=== PATIENT | female | born 1970 | race Caucasian/White ===

== ENCOUNTER 2017-09-12 08:28 | Outpatient (CLI) ==
[2016-03-12 16:39] VITALS: BMI 28.0
--- NOTE | 2017-09-12 09:53 | US ---
EXAM: PELVIC ULTRASOUND COMPLETE HISTORY: Irregular menstrual cycles FINDINGS: Ultrasound pelvis transvaginal. Transvaginal approach imaging was performed for improved r esolution and anatomic definition. The uterus measured 9.1 x 4.5 x 5.2. The right aspect of the lower uterine body demonstrated what ma y represent a slightly hypoechoic, minimally cystic mass measuring 1.6 x 1.3 x 2.0 cm. This could rep resent a fibroid. The myometrium was otherwise grossly unremarkable. Several small Nabothian cysts were seen. The endometrial stripe was symmetric and within normal limits regarding thickness at 0.38 cm. The right ovary was not seen. The left ovary measured 2.3 x 1.5 x 1.4 cm and demonstrated normal son ographic appearance and blood flow. IMPRESSION: 1. Possible uterine fibroid. 2. Unremarkable endometrium. 3. Right ovary not seen. Left ovary appeared normal.
== END 2017-09-12 08:29 | disposition home or self-care (01) ==
LOC: RAD 08:28
PROVIDERS: ATTEND Physician Assistant
DX: N92.6 Irregular menstruation, unspecified (principal)

== ENCOUNTER 2017-09-13 10:11 | Outpatient (CLI) ==
[2016-03-12 16:39] VITALS: BMI 28.0
== END 2017-09-13 10:12 | disposition home or self-care (01) ==
LOC: RAD 10:11
PROVIDERS: ATTEND Physician Assistant
DX: Z12.31 Encounter for screening mammogram for malignant neoplasm of breast (principal)
CPT/HCPCS: 77067

== ENCOUNTER 2018-01-28 14:09 | Emergency (ER) | payer OTHER ==
[2018-01-28 14:17] VITALS: BP 126/87; TEMP 98.3; BMI 29.2
--- NOTE | 2018-01-28 14:30 | ED.PDOC ---
General ED Provider: Dr. AMY COLLIER-ER Chief Complaint: Abscess Stated Complaint: yousuf got mrsa Time Seen by Physician: 14:28 Mode of Arrival: Walk-In Information Source: Patient Exam Limitations: No limitations Primary Care Provider: PHILLIP CONNOLLY Nursing and Triage Documentation Reviewed and Agree: Yes Does patient meet sepsis criteria?: No System Inflammatory Response Syndrome: Not Applicable Sepsis Protocol: For patient's 13 years and over: Temp is 96.8 and below OR 101 and greater Pulse >90 BPM Resp >20/minute Acutely Altered Mental Status Are patient's symptoms suggestive of a new infection, such as: -Pneumonia -Skin, Soft Tissue -Endocarditis -UTI -Bone, Joint Infection -Implantable Device -Acute Abdominal Infection -Wound Infection -Meningitis -Blood Stream Catheter Infection -Unknown Skin Complaint Exam - Skin Rash/Itching Complaint/Exam Onset/Duration: 2 weeks Symptoms Are: Still present Initial Severity: Mild Current Severity: Moderate Location: right shoulder Potential Exposures: Reports: Unknown Aggravating: Reports: None Alleviating: Reports: None Associated Signs and Symptoms: Denies: Difficulty breathing, Fever, Chills Skin Findings: Present: Weeping skin Differential Diagnoses: Impetigo, Other Review of Systems - Review Of Systems Constitutional: Reports: No symptoms Eyes: Reports: No symptoms Ears, Nose, Mouth, Throat: Reports: No symptoms Respiratory: Reports: No symptoms Cardiac: Reports: No symptoms GI: Reports: No symptoms : Reports: No symptoms Musculoskeletal: Reports: No symptoms Skin: Reports: Rash Neurological: Reports: No symptoms Endocrine: Reports: No symptoms Hematologic/Lymphatic: Reports: No symptoms All Other Systems: Reviewed and Negative Past Medical History - Past Medical History Previously Healthy: Yes Endocrine: Reports: None Cardiovascular: Reports: None Respiratory: Reports: None Hematological: Reports: None Gastrointestinal: Reports: None Genitourinary: Reports: None Neuro/Psych: Reports: None Musculoskeletal: Reports: None Cancer: Reports: None Last Menstrual Period: 01/14/2018 - Surgical History General Surgical History: Reports: Hysterectomy, , Unknown - Family History Family History: Reports: Unknown - Social History Smoking Status: Never smoker Hx Substance Use: No Alcohol Screening: None - Immunizations Tetanus Shot up to Date: Yes Physical Exam - Physical Exam Appearance: Well-appearing Pain Distress: Mild Eyes: MURRAY, EOMI, Conjunctiva clear ENT: Ears normal, Nose normal, Oropharynx normal Neck: Supple Respiratory: Airway patent, Breath sounds clear, Breath sounds equal, Respirations nonlabored Cardiovascular: RRR GI/: Soft, Nontender, No masses, Bowel sounds normal, No Organomegaly Musculoskeletal: Normal strength Skin: Warm, Dry, Normal color Neurological: Sensation intact, Motor intact, Reflexes intact, Cranial nerves intact, Alert, Oriented Psychiatric: Affect appropriate, Mood appropriate Critical Care Note - Critical Care Note Total Time (mins): 0 Course - Course Vital Signs: Temp Pulse Resp BP Pulse Ox 01/28/18 14:11 98.3 F 95 H 16 126/87 98 Departure - Departure Time of Disposition: 14:29 Disposition: HOME SELF-CARE Discharge Problem: Cellulitis Qualifiers: Site of cellulitis: other site Qualified Code(s): L03.818 - Cellulitis of other sites Instructions: Cellulitis (ED) Condition: Good Pt referred to PMD for follow-up: Yes IPMP verified?: No Additional Instructions: clindamycin 300mg tid x 7 days--bactroban ointment apply bid x 7 days---f/u with pcp this week Allergies/Adverse Reactions: Allergies cefprozil [From Cefzil] Adverse Reaction (Verified 03/12/16 16:41) Home Medications: Ambulatory Orders 1 [No Reported Medications] 01/28/18 Disposition Discussed With: Patient, Family
== END 2018-01-28 14:43 | disposition home or self-care (01) ==
LOC: ED 14:09
DX: L03.113 Cellulitis of right upper limb (principal)
CPT/HCPCS: 99282

== ENCOUNTER 2018-10-10 09:37 | Outpatient (CLI) ==
--- NOTE | 2018-10-10 10:45 | US ---
EXAM: Ultrasound abdomen limited right upper quadrant HISTORY: Elevated liver enzymes COMPARISON: 07/08/2011 TECHNIQUE: Limited ultrasound abdomen right upper quadrant was performed FINDINGS: Pancreas poorly visualized secondary bowel gas shadowing. Liver normal in size. Liver di ffusely increased in echogenicity. Main portal vein patent with normal direction of flow. Patient s tatus post cholecystectomy. Mild prominence of the common bile duct at 0.9 cm. The right kidney rafael sures 8.7 cm in length without hydronephrosis. IMPRESSION: 1. Hepatic steatosis 2. Status post cholecystectomy. Mild prominence common bile duct likely postsurgical. Findings can be correlate with liver function test.
== END 2018-10-10 09:38 | disposition home or self-care (01) ==
LOC: RAD 09:37
PROVIDERS: ATTEND Nurse Practitioner Family
DX: R74.8 Abnormal levels of other serum enzymes (principal); E88.89 Other specified metabolic disorders
CPT/HCPCS: 36415; 82310; 84075; 84100; 84630

== ENCOUNTER 2018-12-05 11:23 | Outpatient (CLI) ==
--- NOTE | 2018-12-05 16:45 | DI ---
EXAM: RIGHT ANKLE THREE VIEWS HISTORY: Ankle pain FINDINGS: There is no fracture or dislocation. No joint effusion. No significant arthropathy. The re is bony spurring of the posterior calcaneus which is minimal. Soft tissues otherwise within dayanna l limits IMPRESSION: 1. Calcaneal spurring. 2. Otherwise within limits.
--- NOTE | 2018-12-05 19:40 | DI ---
EXAM: Right foot three views HISTORY: Right foot pain COMPARISON: None FINDINGS: No fracture or dislocation. Mild narrowing first MTP joint. Moderate osteoarthritis of t he midfoot with dorsal spurring. Small plantar and posterior calcaneal spurs. No focal soft tissue abnormality. IMPERSSION: 1. Osteoarthritis. 2. Calcaneal spurs
== END 2018-12-05 11:24 | disposition home or self-care (01) ==
LOC: RAD 11:23
PROVIDERS: ATTEND Nurse Practitioner Family
DX: M79.671 Pain in right foot (principal)